=== PATIENT | female | born 1995 | race African-American/Black ===

== ENCOUNTER 2017-01-14 17:57 | Emergency (ER) | payer OTHER, SELFPAY ==
[2017-01-14 18:33] LABS: Bilirubin Small (Negative); Blood, Urine Negative (Negative); Glucose, Urine (Dipstick) Negative (Negative); Ketone, Urine Trace mg/dL (Negative); Nitrite Negative (Negative); Protein, Urine (Dipstick) Trace mg/dL (Neg-Trace)
[2017-01-14 18:35] LABS: Bacteria/HPF 1+ HPF (None Seen); Hyaline Casts/LPF 0-3 HYALINE CAST LPF (0-3 Hyaline)
== END 2017-01-14 22:28 | disposition home or self-care (01) ==
LOC: ERS 17:57
DX: B37.9 Candidiasis, unspecified (principal)
CPT/HCPCS: 81003; 81015; 81025; 87491; 87591; 99283

== ENCOUNTER 2017-02-07 21:13 | Emergency (ER) | payer OTHER | END 2017-02-07 21:28 | disposition left against medical advice (07) | LOC: ERS 21:13 | DX: Z53.21 Procedure and treatment not carried out due to patient leaving prior to being seen by health care provider (principal) ==